=== PATIENT | male | born 1985 | race Two or more races ===

== ENCOUNTER 2022-07-15 11:25 | Emergency (ER) | payer SELFPAY ==
[~2022-07-15] VITALS: Ht 180.3 cm; Wt 81.7 kg
[2022-07-15 11:44] VITALS: BP 116/69
== END 2022-07-15 12:47 | disposition home or self-care (01) ==
LOC: ER 11:25
DX: M72.2 Plantar fascial fibromatosis (principal); M76.61 Achilles tendinitis, right leg; J45.909 Unspecified asthma, uncomplicated
CPT/HCPCS: 99283; A9270